=== PATIENT | male | born 1990 | race Asian ===

== ENCOUNTER 2018-09-06 02:29 | Emergency (ER) | payer OTHER ==
[~2018-09-06] VITALS: Ht 172.7 cm; Wt 72.6 kg
[2018-09-06 04:00] VITALS: BP 120/82; TEMP 98.1
== END 2018-09-06 04:04 | disposition home or self-care (01) ==
LOC: ED 02:29
DX: R10.9 Unspecified abdominal pain (principal); K59.00 Constipation, unspecified
CPT/HCPCS: 74022; 99282